=== PATIENT | male | born 1950 | race Caucasian/White ===

== ENCOUNTER 2017-02-02 06:57 | Emergency (ER) | payer OTHER ==
[2017-02-02 07:11] VITALS: BP 172/105; BMI 29.1
--- NOTE | 2017-02-02 07:25 | DR.GENAD ---
HPI - PCP Primary Care Physician: SIENNA AMARO - Complaint/Symptoms Chief Complaint Doctors Comments: Patient presents with complaint of RUQ pain/ feels a lump in abdomen. He states that he has polycythemia plts usually > 500K. With the recent episode of dyspnea he was evaluated by his human service coordinator and was assured that the heart was not the etiology of the dyspnea. Heart surgery one year ago; RUQ pain has been ongoing since. The past week had episode of diarrhea for three days. Chief Complaint:: SOB/PT C/O OF URQ DISCOMFORT. PT STATES HE THINKS HE FEELS A LUMP OF SOME TYPE IN UPPER ABD AREA - Source History Provided: Patient - Mode of Arrival Mode of Arrival: Ambulatory - Timing Onset of Chief Complaint: 02/02/17 <JOSEF HEIN - Last Filed: 02/02/17 08:16> PMH - PMH Past Medical History: Yes Past Medical History: Coronary Artery Disease, Hypertension Past Medical History Comment: POLYCYTHEMIA Past Surgical History: Yes Surgical History: CABG/Valve Surgery, Ortho Surgery - Family History History of Family Medical Conditions: Yes Family Medical History: Diabetes Mellitus, Coronary Artery Disease - Social History Type of Tobacco Use: None Does any household member use tobacco: No Alcohol Use: None Do you use any recreational Drugs:: No Lives With: Spouse Lives Where: Home - infectious screening In the last 2 months have you had wt loss of >10#?: NO Have you had fever, night sweats or hemotysis?: No Have you traveled outside the country in the last 6 months?: No Isolation: Standard <JOSEF HEIN - Last Filed: 02/02/17 08:16> ROS - Review of Systems Eyes: No Symptoms Reported ENTM: No Symptoms Reported Respiratoy: No Symptoms Reported Cardiovascular: No Symptoms Reported Gastrointestinal/Abdominal: No Symptoms Reported Genitourinary: No Symptoms Reported Neurological: No Symptoms Reported Musculoskeletal: No Symptoms Reported Integumentary: No Symptoms Reported Hematologic/Lymphatic: See HPI, Other (polycythemai) Endocrine: No Symptoms Reported Psychiatric: No Symptoms Reported All Other Systems: Reviewed and Negative <JOSEF HEIN - Last Filed: 02/02/17 08:16> PE - General General Appearance: Alert, In No Apparent Distress - Head Head Exam: Normal Inspection, Atraumatic - Eyes Eye exam: Normal Appearance, PERRL, EOMI - ENT ENT Exam: Normal Exam External Ear Exam: Normal External Inspection TM/Canal Exam: Bilateral Normal Nose Exam: Normal Nose Exam, Sinus Tenderness Mouth Exam: Normal Inspection Throat Exam: Normal Inspection - Neck Neck Exam: Normal Inspection, Full ROM - Chest Chest Inspection: Normal Inspection, Tenderness (generalized) - Respiratory Respiratory Exam: Normal Lung Sounds Bilat Respiratory Exam: Bilateral Clear to Auscultation - Cardiovascular Cardiovascular Exam: Regular Rate, Normal Rhythm - Abdominal Exam Abdominal Exam: Distention, Dimnished Bowel Sounds Abdominal Tenderness: RUQ, Epigastrium - Extremities Extremities Exam: Normal Inspection, Full ROM - Neurologic Neurological Exam: Alert, Oriented X3, CN II-XII Intact - Psychiatric Psychiatric Exam: Normal Affect - Skin Skin Exam: Warm, Dry, Other (areas of ecchymosis) <JOSEF HEIN - Last Filed: 02/02/17 08:16> - Vital Signs Vitals: Temperature 97.6 F Pulse Rate 83 Respiratory Rate 22 Blood Pressure 172/105 O2 Sat by Pulse Oximetry 96 ROR - Labs Reviewed Result Diagrams: 02/02/17 07:40 02/02/17 07:40 <JOSEF HEIN - Last Filed: 02/02/17 08:16> - Labs Reviewed Laboratory Results Reviewed?: Yes Result Diagrams: 02/02/17 07:40 02/02/17 07:40 - XRAY XRAY Interpreted by: Radiologist XRAY Findings: REPORT DISCUSS WITH PATIENT. <JEREMY RODRIGUEZ - Last Filed: 02/02/17 09:00> - Labs Reviewed Laboratory: WBC 11.6 X10^3/uL (3.6-10.0) H 02/02/17 07:40 RBC 4.92 X10^6/uL (4.7-6.0) 02/02/17 07:40 Hgb 16.8 g/dL (13.5-18.0) 02/02/17 07:40 Hct 49.0 % (42.0-54.0) 02/02/17 07:40 MCV 99.7 fL (80.0-100.0) 02/02/17 07:40 MCH 34.2 pg (27.0-34.0) H 02/02/17 07:40 MCHC 34.3 g/dL (33.0-35.0) 02/02/17 07:40 RDW 14.8 % (11.6-16.5) 02/02/17 07:40 Plt Count 638 X10^3/uL (150.0-450.0) H 02/02/17 07:40 Plt Count Comment Increased (ADEQUATE) 02/02/17 07:40 MPV 7.4 fL (7.4-11.0) 02/02/17 07:40 Neut % 81.1 % (42.0-75.0) H 02/02/17 07:40 Lymph % 11.7 % (21.0-51.0) L 02/02/17 07:40 [place] % 6.2 % (0.0-13.0) 02/02/17 07:40 Eos % 0.6 % (0.9-2.9) L 02/02/17 07:40 Baso % 0.4 % (0.2-1.0) 02/02/17 07:40 Neut # 9.4 x10^3/uL (2.2-4.8) H 02/02/17 07:40 Lymph # 1.4 X10^3/uL (1.3-2.9) 02/02/17 07:40 [place] # 0.7 x10^3/uL (0.3-0.8) 02/02/17 07:40 Eos # 0.1 x10^3/uL (0.0-0.2) 02/02/17 07:40 Baso # 0.0 X10^3/uL (0.0-0.1) 02/02/17 07:40 Absolute Nucleated RBC 0.1 /100WBC 02/02/17 07:40 Plt Morphology Comment Normal (NORMAL) 02/02/17 07:40 RBC Morphology Normal (NORMAL) 02/02/17 07:40 Sodium 141 mmol/L (136-145) 02/02/17 07:40 Corrected Sodium 142 mmol/L (136-145) 02/02/17 07:40 Potassium 3.3 mmol/L (3.5-5.1) L 02/02/17 07:40 Chloride 104 mmol/L (98-107) 02/02/17 07:40 Carbon Dioxide 24.4 mmol/L (21-32) 02/02/17 07:40 BUN 11 mg/dL (7-18) 02/02/17 07:40 Creatinine 0.94 mg/dL (0.70-1.30) 02/02/17 07:40 Est GFR (MDRD) Af Amer > 60 (>60) 02/02/17 07:40 Est GFR (MDRD) Non-Af > 60 (>60) 02/02/17 07:40 Glucose 121 mg/dL (65-99) H 02/02/17 07:40 Calcium 9.2 mg/dL (8.5-10.1) 02/02/17 07:40 Corrected Calcium TNP 02/02/17 07:40 Total Bilirubin 1.00 mg/dL (0.2-1.0) 02/02/17 07:40 AST 24 Units/L (15-37) 02/02/17 07:40 ALT 36 Units/L (12-78) 02/02/17 07:40 Alkaline Phosphatase 69 Units/L (46-116) 02/02/17 07:40 C-Reactive Protein 2.40 mg/L (0-3.0) 02/02/17 07:40 Total Protein 7.5 g/dL (6.4-8.2) 02/02/17 07:40 Albumin 4.3 g/dL (3.4-5.0) 02/02/17 07:40 Globulin 3.2 g/dL (2.5-4.5) 02/02/17 07:40 Albumin/Globulin Ratio 1.3 Ratio (1.1-2.1) 02/02/17 07:40 H. pylori IgG Antibody Negative (NEGATIVE) 02/02/17 07:40 <JOSEF HEIN - Last Filed: 02/02/17 08:16> <JEREMY RODRIGUEZ - Last Filed: 02/02/17 09:00> - Diagnosis Discharge Problem: Shortness of breath Abdominal pain Qualifiers: Abdominal location: right upper quadrant Qualified Code(s): R10.11 - Right upper quadrant pain - Discharge Plan Condition: Stable - Follow ups/Referrals Follow ups/Referrals: SIENNA AMARO [Primary Care Provider] - 3 days - Instructions Instructions: Abdominal Pain, Adult, [id number] Additional Instructions: RETURN TO ED IF WORSE.
[2017-02-02 07:59] LABS: BASOPHILS % (AUTO) 0.4 % (0.2-1.0); EOSINOPHILS # (AUTO) 0.1 x10^3/uL (0.0-0.2); EOSINOPHILS % (AUTO) 0.6 % (0.9-2.9); HEMOGLOBIN 16.8 g/dL (13.5-18.0); LYMPHOCYTES # (AUTO) 1.4 X10^3/uL (1.3-2.9); LYMPHOCYTES % (AUTO) 11.7 % (21.0-51.0); MEAN CORPUSCULAR HEMOGLOBIN 34.2 pg (27.0-34.0); MEAN CORPUSCULAR HGB CONC 34.3 g/dL (33.0-35.0); MEAN CORPUSCULAR VOLUME 99.7 fL (80.0-100.0); MEAN PLATELET VOLUME 7.4 fL (7.4-11.0); MONOCYTES # (AUTO) 0.7 x10^3/uL (0.3-0.8); MONOCYTES % (AUTO) 6.2 % (0.0-13.0); NEUTROPHILS # (AUTO) 9.4 x10^3/uL (2.2-4.8); NEUTROPHILS % (AUTO) 81.1 % (42.0-75.0); PLATELET COUNT 638 X10^3/uL (150.0-450.0); RED BLOOD COUNT 4.92 X10^6/uL (4.7-6.0); RED CELL DISTRIBUTION WIDTH 14.8 % (11.6-16.5); WHITE BLOOD COUNT 11.6 X10^3/uL (3.6-10.0)
--- NOTE | 2017-02-02 08:03 | CT ---
HISTORY: Right upper quadrant pain Study: CT abdomen pelvis without contrast Comparison: None Technique: Axial noncontrast images with coronal and sagittal reformats. Dose reduction procedures we re used with mA/kv adjusted for body size. The examination is limited due to the lack of intravenous and oral contrast. Findings: The lung bases are clear. The liver, spleen, adrenal glands, and pancreas are within normal limits to the limitations of an unenhanced examination. No opaque stones are visible within the gallbladder. T he kidneys are unobstructed. There are 2 tiny nonobstructing right lower pole renal calculi present. There is a nonobstructing 8.6 mm left renal pelvic calculus present. No ureteral calculi are identifi ed. The appendix is normal. Calcific atherosclerotic change is present in a nondilated abdominal aort a. No intraperitoneal or retroperitoneal lymphadenopathy is identified. There are no findings suggest courtney of diverticulitis or colitis. The appendix is normal. Examination of the pelvis demonstrated no e vidence for pelvic masses, pelvic fluid, or pelvic lymphadenopathy. No bladder abnormality is identif ied. The prostate is enlarged measuring 5.1 by 3.9 by 3.3 cm. No lytic or blastic skeletal lesions ar e identified. IMPRESSION: No acute intra-abdominal or intrapelvic abnormality to the limitations of an examination performed wi thout intravenous or oral contrast Bilateral nonobstructing renal calculi Moderately enlarged prostate Reported By:
[2017-02-02 08:08] LABS: ALANINE AMINOTRANSFERASE 36 Units/L (12-78); ALBUMIN 4.3 g/dL (3.4-5.0); ALKALINE PHOSPHATASE 69 Units/L (46-116); ASPARTATE AMINO TRANSFERASE 24 Units/L (15-37); BLOOD UREA NITROGEN 11 mg/dL (7-18); CALCIUM 9.2 mg/dL (8.5-10.1); CARBON DIOXIDE 24.4 mmol/L (21-32); CHLORIDE 104 mmol/L (98-107); COR NA(FOR HYPERGLY) 142 mmol/L (136-145); CREATININE 0.94 mg/dL (0.70-1.30); PLATELET MORPHOLOGY COMMENT NORMAL (NORMAL); SODIUM 141 mmol/L (136-145); TOTAL PROTEIN 7.5 g/dL (6.4-8.2); eGFR BLACK RACES > 60 (>60); eGFR NON BLACK RACES > 60 (>60)
[2017-02-02] MEDS ORDERED: POTASSIUM CHLORIDE LIQ 20 MEQ UDC PO ONE (08:26)
[2017-02-02] MEDS ORDERED: POTASSIUM CHLORIDE LIQ 20 MEQ UDC ONE (08:34)
== END 2017-02-02 08:55 | disposition home or self-care (01) ==
LOC: ER 06:57
DX: R06.02 Shortness of breath (principal); R10.11 Right upper quadrant pain; N20.0 Calculus of kidney
CPT/HCPCS: 36415; 74176; 80053; 85025; 86140; 86677; 99283

== ENCOUNTER 2017-08-06 12:35 | Inpatient (IN) | payer OTHER ==
[2017-08-06] MEDS ORDERED: MORPHINE SULFATE INJ 2 MG INJ IVP PRN (13:10)
--- NOTE | 2017-08-06 13:19 | DR.H&P ---
H&P - History & Physical for Day of: H&P Date: 08/06/17 - Chief Complaint Chief Complaint: ABSCESS TO LEFT UNDERARM, WITH REDNESS SWELLING AND SEVERE PAIN - Allergies Allergies/Adverse Reactions: Allergies Allergy/AdvReac Type Severity Reaction Status Date / Time No Known Drug Allergies Allergy Verified 02/02/17 07:19 - History of Present Illness History of Present Illness: 66 WM DIRECT ADMIT FROM DR CHEN OFFICE WITH LEFT AXILLARY ABSCESS WITH CELLULITIS. PT HAD I&D OF 2 AXILLARY ABCESSES, OVER THE LAST 2 WEEKS. PT HAD ONE IN ER IN [place] AND SMALLER IN OFFICE WITH CULTURE POSITIVE FOR MRSA. PT HAS BEEN ON PO BACTRIM FOR 2 WEEKS. PT HAD INCREASE REDNESS TO LEFT UPPER ARM WITH ENLARGED LYMPH NODES. PT HAS PMH OF CAD , HTN, HYPERLIPIDEMIA, POLYCYTHEMIA. PT ADMITTED FOR IV ATBX, AND SURGICAL CONSULT - Past Medical History Past Medical History: Arthritis, Coronary Artery Disease, Dyslipidemia, Hypertension - Past Surgical History Surgical History: CABG/Valve Surgery, Ortho Surgery - Family History Family Medical History: Diabetes Mellitus, Coronary Artery Disease - Social History Does patient currently use any type of tobacco product: No Have you used tobacco products in the last 12 months: No Type of Tobacco Use: None Does any household member use tobacco: No Alcohol Use: None Drug Use: None - Review of Systems Constitutional: Chills, Malaise Eyes: No Symptoms Reported ENT: No Symptoms Reported Respiratory: No Symptoms Reported Cardiovascular: No Symptoms Reported Gastrointestinal: No Symptoms Reported Genitourinary: No Symptoms Reported Musculoskeletal: Arm Pain, Back Pain, Leg Pain Skin: Wound Neurological: No Symptoms Reported - Physical Exam Vital Signs: Blood Pressure 172/105 Oriented: Normal Eyes: Normal Ear: Normal Nose: Normal Throat: Normal Respiratory: RLL Diminished, LLL Diminished Cardiovascular: Normal. negative: Edema : Normal Auscultation: Bowel Sounds: Normal Palpation: Normal Tenderness: Normal Skin: Red, Tender, Hot, Wound (LEFT AXILLARY) Musculoskeletal: Right, Left, Hip, Back:Thoracic, Back:Lumbar, Swelling, Tender Mood Description: Anxious Affect: Anxious Speech Pattern: Clear, Appropriate - Assessment/Plan (1) Cellulitis Status: Acute Plan: ADMIT, BLOOD CULTURES. IV ATBX, ADMISSION LABS. SURGICAL CONSULT, US LEFT AXILLARY. PAIN CONTROL (2) Abscess of left axilla Status: Acute (3) Left axillary swelling Status: Acute (4) Left axillary pain Status: Acute (5) CAD (coronary artery disease) Status: Acute
[2017-08-06] MEDS ORDERED: PHARMACY CONSULT - VANCOMYCIN XX SCH (14:00)
[2017-08-06 14:02] LABS: BASOPHILS % (AUTO) 0.2 % (0.2-1.0); EOSINOPHILS # (AUTO) 0.1 x10^3/uL (0.0-0.2); EOSINOPHILS % (AUTO) 0.7 % (0.9-2.9); HEMATOCRIT 37.5 % (42.0-54.0); HEMOGLOBIN 12.9 g/dL (13.5-18.0); LYMPHOCYTES % (AUTO) 13.9 % (21.0-51.0); MEAN CORPUSCULAR HEMOGLOBIN 34.5 pg (27.0-34.0); MEAN CORPUSCULAR HGB CONC 34.5 g/dL (33.0-35.0); MEAN CORPUSCULAR VOLUME 100.2 fL (80.0-100.0); MEAN PLATELET VOLUME 6.9 fL (7.4-11.0); MONOCYTES # (AUTO) 0.6 x10^3/uL (0.3-0.8); MONOCYTES % (AUTO) 8.2 % (0.0-13.0); NEUTROPHILS # (AUTO) 5.8 x10^3/uL (2.2-4.8); PLATELET COUNT 454 X10^3/uL (150.0-450.0); RED BLOOD COUNT 3.74 X10^6/uL (4.7-6.0); RED CELL DISTRIBUTION WIDTH 26.7 % (11.6-16.5); WHITE BLOOD COUNT 7.5 X10^3/uL (3.6-10.0)
[2017-08-06 14:09] LABS: ALANINE AMINOTRANSFERASE 21 Units/L (12-78); ALKALINE PHOSPHATASE 77 Units/L (46-116); ASPARTATE AMINO TRANSFERASE 18 Units/L (15-37); BLOOD UREA NITROGEN 19 mg/dL (7-18); CALCIUM 8.6 mg/dL (8.5-10.1); CHLORIDE 105 mmol/L (98-107); COR NA(FOR HYPERGLY) 142 mmol/L (136-145); SODIUM 141 mmol/L (136-145); TOTAL PROTEIN 7.4 g/dL (6.4-8.2); eGFR BLACK RACES > 60 (>60); eGFR NON BLACK RACES > 60 (>60)
[2017-08-06 14:31] LABS: PLATELET MORPHOLOGY COMMENT NORMAL (NORMAL)
[2017-08-06 14:33] LABS: ANISOCYTOSIS 3+
[2017-08-06] MEDS ORDERED: NS 1000 ML 1,000 ML ONE (14:34)
[2017-08-06] MEDS ORDERED: VANCOMYCIN 1 GM PREMIX (ADDVANTAGE) 250 ML IV ONE ×2 (14:35→14:37)
[2017-08-06 14:42] LABS: ERYTHROCYTE SEDIMENTATION RATE 29 MM/HOUR (0-15)
[2017-08-06] MEDS: VANCOMYCIN 1 GM PREMIX (ADDVANTAGE) 250 ML IV SCH ×2 (14:56→21:30)
[2017-08-06] MEDS: PERCOCET TAB 5/325 MG PO PRN (14:59)
[2017-08-06] MEDS: PROTONIX INJ 40 MG VIAL IVP SCH (15:00)
[2017-08-06 16:35] VITALS: BMI 25.8
--- NOTE | 2017-08-06 16:48 | US ---
HISTORY: Left axillary abscess Study: Axillary ultrasound Comparison: None Findings: Scans of the left axilla were performed. There are 2 complex fluid collection seen measuring 1.8 x 1. 1 x 2.1 cm and 1 x 1 x 1.7 cm. The findings are concerning for possible abscesses. There is surroundi ng soft tissue edema noted. IMPRESSION: 1. There are 2 complex fluid collections in the left axilla as described that may represent abscesses in the appropriate clinical setting. Reported By:
[2017-08-06] MEDS ORDERED: XYLOCAINE 1 % (PLAIN) ONE (20:46)
[2017-08-06] MEDS ORDERED: DILAUDID INJ ONE (20:47)
[2017-08-06] MEDS ORDERED: DILAUDID INJ IVP PRN (21:00)
--- NOTE | 2017-08-06 21:26 | OR.GENERIC ---
Post-Op Note Generic - Post-Op Note Operative Report: I & D of Lt axillary abscess was done at bedside with large amount of purulent material evacuated . will contiue local care and IV Vanco.
[2017-08-07 05:13] VITALS: BP 160/75
[2017-08-07 06:56] LABS: BASOPHILS % (AUTO) 0.4 % (0.2-1.0); EOSINOPHILS # (AUTO) 0.1 x10^3/uL (0.0-0.2); EOSINOPHILS % (AUTO) 1.2 % (0.9-2.9); HEMATOCRIT 33.2 % (42.0-54.0); HEMOGLOBIN 11.5 g/dL (13.5-18.0); LYMPHOCYTES # (AUTO) 1.1 X10^3/uL (1.3-2.9); MEAN CORPUSCULAR HEMOGLOBIN 34.6 pg (27.0-34.0); MEAN CORPUSCULAR HGB CONC 34.7 g/dL (33.0-35.0); MEAN CORPUSCULAR VOLUME 99.9 fL (80.0-100.0); MEAN PLATELET VOLUME 7.2 fL (7.4-11.0); MONOCYTES # (AUTO) 0.4 x10^3/uL (0.3-0.8); MONOCYTES % (AUTO) 8.7 % (0.0-13.0); NEUTROPHILS # (AUTO) 3.4 x10^3/uL (2.2-4.8); NEUTROPHILS % (AUTO) 67.7 % (42.0-75.0); PLATELET COUNT 353 X10^3/uL (150.0-450.0); RED BLOOD COUNT 3.33 X10^6/uL (4.7-6.0); RED CELL DISTRIBUTION WIDTH 26.3 % (11.6-16.5); WHITE BLOOD COUNT 5.1 X10^3/uL (3.6-10.0)
[2017-08-07 07:18] LABS: ANISOCYTOSIS 2+; PLATELET MORPHOLOGY COMMENT NORMAL (NORMAL)
[2017-08-07 07:22] LABS: ALANINE AMINOTRANSFERASE 23 Units/L (12-78); ALBUMIN 3.2 g/dL (3.4-5.0); ALKALINE PHOSPHATASE 64 Units/L (46-116); ASPARTATE AMINO TRANSFERASE 15 Units/L (15-37); BLOOD UREA NITROGEN 16 mg/dL (7-18); CALCIUM 8.1 mg/dL (8.5-10.1); CARBON DIOXIDE 24.4 mmol/L (21-32); CHLORIDE 108 mmol/L (98-107); COR CA(FOR HYPOALB) 8.7 mg/dL (8.5-10.1); SODIUM 141 mmol/L (136-145); TOTAL PROTEIN 6.1 g/dL (6.4-8.2); eGFR BLACK RACES > 60 (>60); eGFR NON BLACK RACES > 60 (>60)
[2017-08-07] MEDS: VANCOMYCIN 1 GM PREMIX (ADDVANTAGE) 250 ML IV SCH (08:36)
[2017-08-07] MEDS: PROTONIX INJ 40 MG VIAL IVP SCH (08:36)
[2017-08-07] MEDS: PERCOCET TAB 5/325 MG PO PRN (08:36)
== END 2017-08-07 12:25 | disposition home or self-care (01) | DRG 603 ==
LOC: UNDOADMIN 12:35 → ICU 12:35
PROVIDERS: ADMIT Internal Medicine; ATTEND Internal Medicine
PROC: 0X950ZX Drainage of Left Axilla, Open Approach, Diagnostic (ICD-10-PCS; principal; 2017-08-06)
DX: L03.112 Cellulitis of left axilla (principal); L02.412 Cutaneous abscess of left axilla; R22.2 Localized swelling, mass and lump, trunk; I25.10 Atherosclerotic heart disease of native coronary artery without angina pectoris; I10 Essential (primary) hypertension; E78.2 Mixed hyperlipidemia; B95.62 Methicillin resistant Staphylococcus aureus infection as the cause of diseases classified elsewhere; D45 Polycythemia vera; R79.82 Elevated C-reactive protein (CRP)
CPT/HCPCS: 36415; 76882; 80053; 85025; 85652; 86140; 87040; A4222; C9113; J1170; J2001; J2270; J3370

== ENCOUNTER 2019-02-23 07:35 | Observation (INO) ==
[2019-02-23] MEDS: DEMEROL INJ IVP PRN ×2 (10:06→17:10)
[2019-02-23 10:18] LABS: BASOPHILS # (AUTO) 0.1 X10^3/uL (0.0-0.1); BASOPHILS % (AUTO) 0.7 % (0.2-1.0); EOSINOPHILS # (AUTO) 0.3 x10^3/uL (0.0-0.2); HEMATOCRIT 34.7 % (42.0-54.0); HEMOGLOBIN 11.6 g/dL (13.5-18.0); LYMPHOCYTES # (AUTO) 1.3 X10^3/uL (1.3-2.9); LYMPHOCYTES % (AUTO) 15.2 % (21.0-51.0); MEAN CORPUSCULAR HGB CONC 33.5 g/dL (33.0-35.0); MEAN CORPUSCULAR VOLUME 86.7 fL (80.0-100.0); MEAN PLATELET VOLUME 7.6 fL (7.4-11.0); MONOCYTES # (AUTO) 0.6 x10^3/uL (0.3-0.8); MONOCYTES % (AUTO) 6.7 % (0.0-13.0); NEUTROPHILS # (AUTO) 6.4 x10^3/uL (2.2-4.8); NEUTROPHILS % (AUTO) 74.4 % (42.0-75.0); PLATELET COUNT 593 X10^3/uL (150.0-450.0); RED BLOOD COUNT 4.01 X10^6/uL (4.7-6.0); RED CELL DISTRIBUTION WIDTH 15.1 % (11.6-16.5); WHITE BLOOD COUNT 8.6 X10^3/uL (3.6-10.0)
[2019-02-23 10:30] LABS: ALANINE AMINOTRANSFERASE 39 Units/L (12-78); ALBUMIN 3.6 g/dL (3.4-5.0); ALKALINE PHOSPHATASE 55 Units/L (46-116); AMYLASE 39 Units/L (25-115); ASPARTATE AMINO TRANSFERASE 18 Units/L (15-37); BLOOD UREA NITROGEN 15 mg/dL (7-18); CALCIUM 8.3 mg/dL (8.5-10.1); CHLORIDE 108 mmol/L (98-107); CREATININE 0.98 mg/dL (0.70-1.30); LIPASE 40 Units/L (73-393); SODIUM 143 mmol/L (136-145); TOTAL PROTEIN 6.2 g/dL (6.4-8.2); eGFR NON BLACK RACES > 60 (>60)
[2019-02-23 10:35] VITALS: BMI 28.1
[2019-02-23 12:47] LABS: BILIRUBIN,URINE NEGATIVE (NEGATIVE); BLOOD/HEMOGLOBIN,URINE NEGATIVE (NEGATIVE); GLUCOSE, URINE NEGATIVE (NEGATIVE); KETONES,URINE NEGATIVE (NEGATIVE); LEUKOCYTE ESTERASE ,URINE NEGATIVE (NEGATIVE); NITRITES,URINE NEGATIVE (NEGATIVE); PROTEIN,URINE 1+ (NEGATIVE); UROBILINOGEN,URINE NORMAL (NORMAL)
[2019-02-23] MEDS ORDERED: LOVENOX INJ 40 MG SYR SC SCH (13:00)
[2019-02-23 13:01] LABS: APPEARANCE,URINE CLEAR (CLEAR); BACTERIA,URINE NEGATIVE /HPF (NEGATIVE); COLOR,URINE YELLOW (YELLOW); RBC,URINE NONE SEEN /HPF (0-3); SQUAMOUS EPITHELIAL CELL,UR RARE /HPF (NEGATIVE)
[2019-02-23] MEDS ORDERED: NS 100 ML IV 100 ML IV ONE (13:48)
[2019-02-23] MEDS: NS 1000 ML 1,000 ML IV SCH ×3 (15:32→23:44)
--- NOTE | 2019-02-23 16:06 | US ---
HISTORY: Right upper quadrant pain. Study: Right upper quadrant abdominal ultrasound Comparison: None. Technique: Multiple gabriel scale and color flow Doppler images of the right upper quadrant were obtained. Findings: The liver is normal in echotexture and size. No focal intraparenchymal mass or intrahepatic biliary ductal dilatation can be observed. There is a sludge ball versus nonshadowing gallstone seen in the gallbladder without sonographic evidence for acute cholecystitis. Nuclear medicine HIDA imaging follow-up is suggested, however, as Kuo's sign is reportedly sonographically positive. The common bile duct is unremarkable measuring 2 mm. No pericholecystic fluid or gallbladder wall thickening can be observed. The CBD measures within normal limits. The right kidney appears normal in size without focal parenchymal mass or nephrolithiasis. The right kidney measurers 9 x 5 cm. Mild right-sided renal cortical thinning is seen in the right kidney is somewhat echogenic in appearance. Please correlate with renal function tests and parameters. No hydronephrosis or perirenal fluid can be observed. The pancreatic head and body are unremarkable. The pancreatic tail is largely obscured by overlying bowel gas. IMPRESSION: Sludge ball versus nonshadowing gallstone seen within the gallbladder without definitive sonographic evidence for acute cholecystitis. Nuclear medicine HIDA imaging follow-up is suggested, however, as Kuo's sign is reportedly sonographically positive. The common bile duct is normal in size measuring 2 mm. Unremarkable liver. The right kidney appears normal in size without focal parenchymal mass or nephrolithiasis. The right kidney measurers 9 x 5 cm. Mild right-sided renal cortical thinning is seen, and the right kidney is somewhat echogenic in appearance, suggesting chronic medical renal disease. Please correlate with renal function tests & parameters. Reported By:
--- NOTE | 2019-02-23 17:31 | CT ---
History: Pain Exam: CT abdomen and pelvis with contrast Comparison: 02/02/2017 Technique: Axial spiral images were obtained from lung bases through the pubic symphysis after administration of IV and oral contrast. Automated dose control was utilized. Findings: There are small bibasilar pleural effusions and associated bibasilar atelectasis or infiltrates posteriorly which is more prominent on the left . The liver and spleen are normal size with fatty replacement throughout the liver. The gallbladder, pancreas , and bile ducts are normal. The adrenals are normal. The kidneys are normal size and function normally with no hydronephrosis or renal stones . There is a prominent extrarenal pelvis on the left which is unchanged . No masses are seen. There is a 5 x 3 mm stone lodged in the proximal right ureter , at the level of the lower pole , which was not seen previously and is not causing any significant obstruction. The distal ureters are normal caliber. The bladder is unremarkable. The prostate gland is mildly enlarged and partially calcified. There are diverticula scattered along the sigmoid colon. The appendix is normal. No adenopathy or ascites is seen . The mesentery is unremarkable . The bones are intact with no aggressive osseous lesion . IMPRESSION: 5 x 3 mm stone lodged in the proximal right ureter which is not causing any significant urinary obstruction, recommend urological follow-up . Small bibasilar pleural effusions and associated bibasilar atelectasis or infiltrates which is more prominent on the left. Normal size liver with diffuse fatty replacement throughout . Mild diverticulosis of the sigmoid colon with no pericolonic inflammation. Mild prostatic enlargement with no pelvic mass or adenopathy. Reported By:
[2019-02-23] MEDS: DILAUDID INJ IVP PRN (22:26)
--- NOTE | 2019-02-23 22:36 | DR.H&P ---
H&P - History & Physical for Day of: H&P Date: 02/23/19 - Chief Complaint Chief Complaint: ABDOMINAL PAIN - History of Present Illness History of Present Illness: IS A 68 YEAR OLD PATIENT OF OURS WHO IS A DIRECT ADMISSION DUE TO INTRACTABLE ABDOMINAL PAIN THAT STARTED APPROXIMATELY THREE DAYS AGO. PAIN IS MAINLY LOCATED IN THE RIGHT UPPER QUADRANT. HE ALSO REPORTS SHORTNESS OF BREATH AT TIMES. ON ARRIVAL, VITALS WERE 98.2-60-18-99%- 177/84. LABS WERE OBTAINED. ABNORMAL LAB VALUES INCLUDE THE FOLLOWING: RBC 4.01, HGB 11.1, HCT 34.7, PLT COUNT 593, CHLORIDE 108, CALCIUM 8.3, TOTAL PROTEIN 6.2, LIPASE 40. AN ABDOMEN/PELVIS CT WAS OBTAINED AND REVEALED: 5 x 3 mm stone lodged in the proximal right ureter which is not causing any significant urinary obstruction, recommend urological follow-up. Small bibasilar pleural effusions and associated bibasilar atelectasis or infiltrates which is more prominent on the left. Normal size liver with diffuse fatty replacement throughout. Mild diverticulosis of the sigmoid colon with no pericolonic inflammation. Mild prostatic enlargement with no pelvic mass or adenopathy. A GALLBLADDER US WAS OBTAINED AND REVEALED: Sludge ball versus nonshadowing gallstone seen within the gallbladder without definitive sonographic evidence for acute cholecystitis. Nuclear medicine HIDA imaging follow-up is suggested, however, as Kuo's sign is reportedly sonographically positive. The common bile duct is normal in size measuring 2 mm. Unremarkable liver. The right kidney appears normal in size without focal parenchymal mass or nephrolithiasis. The right kidney measurers 9 x 5 cm. Mild right-sided renal cortical thinning is seen, and the right kidney is somewhat echogenic in appearance, suggesting chronic medical renal disease. Please correlate with renal function tests & parameters. AN EKG WAS OBTAINED AND REVEALED: SINUS RHYTHM WITH HR 59. WE WILL CONSULT , GENERAL SURGEON. WE WILL START NORMAL SALINE AT 125ML/HR, DILAUDID 1G IV Q4H PRN, ZOFRAN 4MG IV Q4H PRN. OTHERWISE, WE PLAN TO FOLLOW UP WITH AM LABS AND CONTINUE TO MONITOR. - Past Medical History Past Medical History: Arthritis, Coronary Artery Disease, Dyslipidemia, Hyperten brandy - Past Surgical History Surgical History: CABG/Valve Surgery, Ortho Surgery, Lithotripsy - Family History Family Medical History: Diabetes Mellitus, Cancer, Coronary Artery Disease - Social History Type of Tobacco Use: None Does any household member use tobacco: No Alcohol Use: None Drug Use: None - Medications Home Medications: No Known Drug Allergies Allergy (Verified 02/02/17 07:19) CONTINUE taking the following medications aspirin [Aspirin Low Dose] 81 mg PO DAILY 02/23/19 [History] carisoprodol [Soma] 350 mg PO TID PRN 02/23/19 [History] cholecalciferol (vitamin D3) [Vitamin D3] 5,000 unit PO BID 02/23/19 [History] coQ10 (ubiquinol) [Active Q] 200 mg PO DAILY 02/23/19 [History] gabapentin 300 mg PO QHS PRN 02/23/19 [History] hydroxychloroquine 200 mg PO BID 02/23/19 [History] hydroxyurea 500 mg PO DAILY 02/23/19 [History] meloxicam 7.5 mg PO BIDWM 02/23/19 [History] prednisone 5 mg PO QAM 02/23/19 [History] triamterene-hydrochlorothiazid [Dyazide] 1 cap PO QAM PRN 02/23/19 [History] - Review of Systems Constitutional: See HPI Eyes: No Symptoms Reported ENT: No Symptoms Reported Respiratory: No Symptoms Reported Cardiovascular: No Symptoms Reported Gastrointestinal: See HPI, Nausea, Abdominal Pain Genitourinary: No Symptoms Reported Musculoskeletal: No Symptoms Reported Skin: No Symptoms Reported Neurological: Weakness - Physical Exam Vital Signs: Temperature 98.5 F Pulse Rate [Left Brachial] 60 Respiratory Rate 18 Blood Pressure [Left Arm] 160/76 Blood Pressure 160/75 O2 Sat by Pulse Oximetry 97 Oriented: Normal Eyes: Normal Ear: Normal Nose: Normal Throat: Normal Respiratory: Diminished Throughout Cardiovascular: Normal. negative: S3, S4, Murmur : Normal Auscultation: Bowel Sounds: Normal Palpation: Normal Tenderness: RUQ Skin: Normal Musculoskeletal: Normal Psychiatric: Normal Mood Description: Calm Affect: Normal Speech Pattern: Clear - Assessment/Plan (1) Abdominal pain Qualifiers: Abdominal location: right upper quadrant Qualified Code(s): R10.11 - Right upper quadrant pain Status: Acute Plan: SURGICAL CONSULT, NORMAL SALINE AT 125ML/HR, DILAUDID 1G IV Q4H PRN, ZOFRAN 4MG IV Q4H PRN, CONTINUE TO MONITOR - Allergies Allergies/Adverse Reactions: Allergies Allergy/AdvReac Type Severity Reaction Status Date / Time No Known Drug Allergies Allergy Verified 02/02/17 07:19
[2019-02-24] MEDS: NS 1000 ML 1,000 ML IV SCH (04:30)
[2019-02-24] MEDS: DILAUDID INJ IVP PRN ×7 (05:29→14:59)
[2019-02-24] MEDS: ZOFRAN INJ 4 MG VIAL IVP PRN ×3 (05:37→15:00)
[2019-02-24 06:25] LABS: BASOPHILS # (AUTO) 0.1 X10^3/uL (0.0-0.1); BASOPHILS % (AUTO) 0.7 % (0.2-1.0); EOSINOPHILS # (AUTO) 0.2 x10^3/uL (0.0-0.2); EOSINOPHILS % (AUTO) 2.8 % (0.9-2.9); HEMATOCRIT 34.8 % (42.0-54.0); HEMOGLOBIN 11.8 g/dL (13.5-18.0); LYMPHOCYTES # (AUTO) 1.2 X10^3/uL (1.3-2.9); LYMPHOCYTES % (AUTO) 14.5 % (21.0-51.0); MEAN CORPUSCULAR HEMOGLOBIN 29.3 pg (27.0-34.0); MEAN CORPUSCULAR HGB CONC 33.9 g/dL (33.0-35.0); MEAN CORPUSCULAR VOLUME 86.4 fL (80.0-100.0); MEAN PLATELET VOLUME 7.9 fL (7.4-11.0); MONOCYTES # (AUTO) 0.5 x10^3/uL (0.3-0.8); NEUTROPHILS # (AUTO) 6.5 x10^3/uL (2.2-4.8); PLATELET COUNT 659 X10^3/uL (150.0-450.0); RED BLOOD COUNT 4.03 X10^6/uL (4.7-6.0); RED CELL DISTRIBUTION WIDTH 15.3 % (11.6-16.5); WHITE BLOOD COUNT 8.6 X10^3/uL (3.6-10.0)
[2019-02-24 06:35] LABS: ALANINE AMINOTRANSFERASE 36 Units/L (12-78); ALBUMIN 3.6 g/dL (3.4-5.0); ALKALINE PHOSPHATASE 55 Units/L (46-116); ASPARTATE AMINO TRANSFERASE 15 Units/L (15-37); BLOOD UREA NITROGEN 13 mg/dL (7-18); CALCIUM 8.4 mg/dL (8.5-10.1); CARBON DIOXIDE 25.3 mmol/L (21-32); CHLORIDE 107 mmol/L (98-107); CREATININE 0.92 mg/dL (0.70-1.30); SODIUM 141 mmol/L (136-145); TOTAL PROTEIN 6.2 g/dL (6.4-8.2); eGFR NON BLACK RACES > 60 (>60)
[2019-02-24 07:01] LABS: PLATELET MORPHOLOGY COMMENT NORMAL (NORMAL)
[2019-02-24] MEDS ORDERED: BACTROBAN TOPICAL OINT ONE (09:46)
[2019-02-24] MEDS ORDERED: LR 1000 ML IV 1,000 ML IV ONE ×2 (10:13→10:28)
[2019-02-24] MEDS ORDERED: NS 100 ML IV 100 ML IV ONE (10:13)
[2019-02-24] MEDS ORDERED: ANCEF VIAL 1 GRAM ONE (10:14)
[2019-02-24] MEDS ORDERED: FENTANYL INJ 100 mcg ONE (10:28)
[2019-02-24] MEDS ORDERED: DECADRON INJ ONE ×2 (10:29→14:25)
[2019-02-24] MEDS ORDERED: MORPHINE SULFATE INJ 10 MG ONE (10:29)
[2019-02-24] MEDS ORDERED: AMIDATE INJ 40 MG VIAL ONE ×2 (10:29→14:25)
[2019-02-24] MEDS ORDERED: ZEMURON ONE ×2 (10:30→14:25)
[2019-02-24] MEDS ORDERED: ZOFRAN INJ 4 MG VIAL IVP PRN (12:21)
[2019-02-24] MEDS ORDERED: PHENERGAN INJ 25 MG IM PRN (12:21)
[2019-02-24] MEDS ORDERED: BENADRYL INJ 50 MG VIAL IVP PRN (12:21)
[2019-02-24] MEDS ORDERED: REGLAN INJ 10 MG VIAL IVP PRN (12:21)
[2019-02-24] MEDS ORDERED: DILAUDID INJ ONE ×2 (12:34→12:49)
[2019-02-24] MEDS ORDERED: APRESOLINE INJ 20 MG VIAL ONE (12:49)
[2019-02-24] MEDS ORDERED: XYLOCAINE 1 % (PLAIN) ONE (14:25)
[2019-02-24] MEDS ORDERED: QUELICIN (OR ANECTINE) ONE (14:25)
[2019-02-24] MEDS ORDERED: VERSED ONE (14:25)
[2019-02-24] MEDS ORDERED: ZOFRAN INJ 4 MG VIAL ONE (14:25)
[2019-02-24] MEDS ORDERED: ULTANE GAS IN ONE (14:25)
[2019-02-24] MEDS ORDERED: NEOSTIGMINE INJ ONE (14:25)
[2019-02-24] MEDS ORDERED: TORADOL 30 MG VIAL ONE (14:25)
[2019-02-24] MEDS ORDERED: ROBINUL ONE (14:25)
[2019-02-24 17:21] VITALS: BP 168/79
[2019-02-24] MEDS ORDERED: TRIAMTERENE HYDROCHLOROTHIAZID PO PRN (18:25)
[2019-02-24] MEDS ORDERED: SOMA TAB 350 MG PO PRN (18:25)
[2019-02-24] MEDS ORDERED: PATIENT'S HOME MEDICATION (Cholecalciferol (Vitamin D3) [Vitamin D3] 5,000 UNIT) PO SCH (21:00)
[2019-02-24] MEDS ORDERED: PLAQUENIL PO SCH (21:00)
[2019-02-24] MEDS ORDERED: NEURONTIN CAP 300 MG PO PRN (21:00)
[2019-02-25] MEDS ORDERED: HYDREA PO SCH (09:00)
[2019-02-25] MEDS ORDERED: COQ10 200 MG PO SCH (09:00)
[2019-02-25] MEDS ORDERED: PREDNISONE TAB 5 MG PO SCH (09:00)
== END 2019-02-24 18:25 | disposition home or self-care (01) ==
LOC: MED/SURG
PROVIDERS: ADMIT Internal Medicine; ATTEND Internal Medicine
DX: R94.31 Abnormal electrocardiogram [ECG] [EKG]; K82.8 Other specified diseases of gallbladder; J90 Pleural effusion, not elsewhere classified; K57.30 Diverticulosis of large intestine without perforation or abscess without bleeding; N20.1 Calculus of ureter; R06.02 Shortness of breath; N40.0 Benign prostatic hyperplasia without lower urinary tract symptoms; I25.10 Atherosclerotic heart disease of native coronary artery without angina pectoris; R10.9 Unspecified abdominal pain; K81.1 Chronic cholecystitis; I10 Essential (primary) hypertension; L03.90 Cellulitis, unspecified; R10.84 Generalized abdominal pain; E78.2 Mixed hyperlipidemia
CPT/HCPCS: 36415; 74177; 76705; 80053; 81001; 82150; 83690; 85025; 85610; 85730; 88304; 93005; 96360; 96361; 96372; 96374; A4216; A4222; G0378; J0330; J0360; J0690; J1100; J1170; J1650; J1885; J2175; J2250; J2270; J2405; J2710; J3010; J3490; J7030; J7050; J7120

== ENCOUNTER 2021-11-20 19:29 | Observation (INO) ==
[2021-11-20] MEDS ORDERED: SNACK - Diabetic Appropriate PO SCH (21:34)
[2021-11-20] MEDS ORDERED: NovoLIN R (or HumuLIN R) SUBCUT PRN (21:34)
[2021-11-20] MEDS ORDERED: MORPHINE SULFATE INJ 2 MG INJ IVP PRN (21:34)
[2021-11-20 22:15] LABS: BASOPHILS # (AUTO) 0.1 X10^3/uL (0.0-0.1); BASOPHILS % (AUTO) 0.7 % (0.2-1.0); EOSINOPHILS % (AUTO) 0.5 % (0.9-2.9); HEMATOCRIT 42.3 % (42.0-54.0); HEMOGLOBIN 14.7 g/dL (13.5-18.0); LYMPHOCYTES # (AUTO) 0.8 X10^3/uL (1.3-2.9); LYMPHOCYTES % (AUTO) 10.2 % (21.0-51.0); MEAN CORPUSCULAR HEMOGLOBIN 38.9 pg (27.0-34.0); MEAN CORPUSCULAR HGB CONC 34.8 g/dL (33.0-35.0); MEAN CORPUSCULAR VOLUME 111.8 fL (80.0-100.0); MEAN PLATELET VOLUME 6.9 fL (7.4-11.0); MONOCYTES # (AUTO) 0.6 x10^3/uL (0.3-0.8); MONOCYTES % (AUTO) 7.4 % (0.0-13.0); NEUTROPHILS # (AUTO) 6.3 x10^3/uL (2.2-4.8); NEUTROPHILS % (AUTO) 81.2 % (42.0-75.0); RED BLOOD COUNT 3.79 X10^6/uL (4.7-6.0); RED CELL DISTRIBUTION WIDTH 16.6 % (11.6-16.5); WHITE BLOOD COUNT 7.8 X10^3/uL (3.6-10.0)
[2021-11-20 22:20] LABS: ALANINE AMINOTRANSFERASE 44 Units/L (12-78); ALBUMIN 4.1 g/dL (3.4-5.0); ALKALINE PHOSPHATASE 68 Units/L (46-116); AMYLASE 74 Units/L (25-115); ASPARTATE AMINO TRANSFERASE 24 Units/L (15-37); BLOOD UREA NITROGEN 27 mg/dL (7-18); CALCIUM 8.8 mg/dL (8.5-10.1); CARBON DIOXIDE 26.9 mmol/L (21-32); CHLORIDE 105 mmol/L (98-107); COR NA(FOR HYPERGLY) 142 mmol/L (136-145); CREATININE 0.94 mg/dL (0.70-1.30); LIPASE 89 Units/L (73-393); SODIUM 141 mmol/L (136-145); eGFR NON BLACK RACES > 60 (>60)
[2021-11-20 22:21] LABS: PLATELET MORPHOLOGY COMMENT NORMAL (NORMAL)
[2021-11-20] MEDS: NS 1,000 ML IV 1,000 ML IV SCH (22:30)
[2021-11-20] MEDS: ZOFRAN INJ 4 MG VIAL IVP PRN (23:45)
[2021-11-20] MEDS: DILAUDID INJ IVP PRN (23:50)
[2021-11-21 01:33] VITALS: BMI 28.8
[2021-11-21 01:56] LABS: BILIRUBIN,URINE NEGATIVE (NEGATIVE); BLOOD/HEMOGLOBIN,URINE NEGATIVE (NEGATIVE); GLUCOSE, URINE 4+ (NEGATIVE); KETONES,URINE 2+ (NEGATIVE); LEUKOCYTE ESTERASE ,URINE NEGATIVE (NEGATIVE); NITRITES,URINE NEGATIVE (NEGATIVE); PROTEIN,URINE NEGATIVE (NEGATIVE); UROBILINOGEN,URINE NORMAL (NORMAL)
[2021-11-21 01:57] LABS: APPEARANCE,URINE CLEAR (CLEAR); COLOR,URINE YELLOW (YELLOW)
[2021-11-21] MEDS: DILAUDID INJ IVP PRN ×3 (04:28→13:41)
[2021-11-21 05:34] LABS: BASOPHILS % (AUTO) 0.4 % (0.2-1.0); EOSINOPHILS % (AUTO) 0.1 % (0.9-2.9); HEMOGLOBIN 13.5 g/dL (13.5-18.0); LYMPHOCYTES # (AUTO) 0.6 X10^3/uL (1.3-2.9); LYMPHOCYTES % (AUTO) 9.7 % (21.0-51.0); MEAN CORPUSCULAR HEMOGLOBIN 38.4 pg (27.0-34.0); MEAN CORPUSCULAR HGB CONC 34.5 g/dL (33.0-35.0); MEAN CORPUSCULAR VOLUME 111.2 fL (80.0-100.0); MEAN PLATELET VOLUME 7.4 fL (7.4-11.0); MONOCYTES # (AUTO) 0.5 x10^3/uL (0.3-0.8); MONOCYTES % (AUTO) 7.5 % (0.0-13.0); NEUTROPHILS # (AUTO) 5.4 x10^3/uL (2.2-4.8); NEUTROPHILS % (AUTO) 82.3 % (42.0-75.0); RED BLOOD COUNT 3.51 X10^6/uL (4.7-6.0); RED CELL DISTRIBUTION WIDTH 16.9 % (11.6-16.5); WHITE BLOOD COUNT 6.6 X10^3/uL (3.6-10.0)
[2021-11-21 05:44] LABS: ALANINE AMINOTRANSFERASE 36 Units/L (12-78); ALBUMIN 3.7 g/dL (3.4-5.0); ALKALINE PHOSPHATASE 56 Units/L (46-116); ASPARTATE AMINO TRANSFERASE 15 Units/L (15-37); BLOOD UREA NITROGEN 21 mg/dL (7-18); CALCIUM 8.7 mg/dL (8.5-10.1); CARBON DIOXIDE 26.8 mmol/L (21-32); CHLORIDE 106 mmol/L (98-107); COR NA(FOR HYPERGLY) 143 mmol/L (136-145); CREATININE 0.75 mg/dL (0.70-1.30); SODIUM 142 mmol/L (136-145); TOTAL PROTEIN 6.3 g/dL (6.4-8.2); eGFR NON BLACK RACES > 60 (>60)
[2021-11-21 06:32] LABS: ANISOCYTOSIS SLIGHT; PLATELET MORPHOLOGY COMMENT NORMAL (NORMAL)
[2021-11-21] MEDS ORDERED: NS 100 ML IV 100 ML ONE (08:01)
[2021-11-21] MEDS: ZOFRAN INJ 4 MG VIAL IVP PRN ×2 (08:44→13:39)
[2021-11-21] MEDS ORDERED: ELIQUIS PO SCH (09:00)
[2021-11-21] MEDS ORDERED: FLOMAX PO SCH (11:00)
[2021-11-21] MEDS: NEURONTIN CAP 400 MG PO SCH ×2 (11:04→14:15)
[2021-11-21] MEDS: NS 1,000 ML IV 1,000 ML IV SCH (11:04)
--- NOTE | 2021-11-21 13:08 | CT ---
HISTORYABDOMINAL PAIN, NAUSEA/VOMITINGSTUDYABDOMEN/PELVIS WITH [id number] images through the abdomen and pelvis were performed after the administration of contrast. CT scan was performed following ALARA (As low as Reasonably Achievable).Coronal and Sagittal reformatted images were performed.FINDINGSThe lung bases demonstrate minimal atelectasis. The liver, spleen and pancreas demonstrate no focal lesions. Patient is status post cholecystectomy. There is normal enhancement of the portal vein. No intra or extra-axial fluid collections.The stomach is decompressed. Small hiatal hernia. There is no adrenal masses. There are bilateral normal-sized kidneys without evidence of hydronephrosis with increase density in the renal pelvises, probably contrastNo retroperitoneal masses, no abnormal dilated small bowel loops, the terminal ileum is unremarkable, no appendicitisPelvis: No free fluid, the prostate is not enlarged, urinary bladder is unremarkable, there is no evidence of pelvic adenopathyBone windows no evidence of aggressive bone lesions. No acute fractures.IMPRESSIONNo acute intra-abdominal abnormalities. Densities in the renal pelvises bilaterally probably contrast.Electronically signed by: Mary Anne Dodson (Nov 21, 2021 13:07:07)
[2021-11-21 17:37] VITALS: BP 164/75
== END 2021-11-21 17:30 | disposition home or self-care (01) ==
LOC: ICU
PROVIDERS: ADMIT Internal Medicine; ATTEND Internal Medicine
DX: R11.2 Nausea with vomiting, unspecified; R10.84 Generalized abdominal pain; Z20.822 Contact with and (suspected) exposure to COVID-19

== ENCOUNTER 2022-11-11 17:06 | Observation (INO) ==
[2022-11-11] MEDS ORDERED: NovoLIN R (or HumuLIN R) SUBCUT PRN ×2 (18:24→22:04)
[2022-11-11] MEDS ORDERED: CONSULT PHARMACY - POTASSIUM & MAGNESIUM XX SCH (19:00)
[2022-11-11 19:27] LABS: BASOPHILS # (AUTO) 0.1 X10^3/uL (0.0-0.1); BASOPHILS % (AUTO) 0.7 % (0.2-1.0); EOSINOPHILS % (AUTO) 0.2 % (0.9-2.9); HEMATOCRIT 38.7 % (42.0-54.0); LYMPHOCYTES # (AUTO) 0.5 X10^3/uL (1.3-2.9); LYMPHOCYTES % (AUTO) 3.6 % (21.0-51.0); MEAN CORPUSCULAR HEMOGLOBIN 39.6 pg (27.0-34.0); MEAN CORPUSCULAR HGB CONC 33.6 g/dL (33.0-35.0); MEAN CORPUSCULAR VOLUME 117.7 fL (80.0-100.0); MEAN PLATELET VOLUME 7.2 fL (7.4-11.0); MONOCYTES # (AUTO) 0.9 x10^3/uL (0.3-0.8); MONOCYTES % (AUTO) 6.6 % (0.0-13.0); NEUTROPHILS # (AUTO) 12.4 x10^3/uL (2.2-4.8); NEUTROPHILS % (AUTO) 88.9 % (42.0-75.0); PLATELET COUNT 450 X10^3/uL (150.0-450.0); RED BLOOD COUNT 3.29 X10^6/uL (4.7-6.0); RED CELL DISTRIBUTION WIDTH 14.7 % (11.6-16.5); WHITE BLOOD COUNT 13.9 X10^3/uL (3.6-10.0)
[2022-11-11 19:29] LABS: ALANINE AMINOTRANSFERASE 29 Units/L (12-78); ALBUMIN 3.9 g/dL (3.4-5.0); ALKALINE PHOSPHATASE 73 Units/L (46-116); ASPARTATE AMINO TRANSFERASE 20 Units/L (15-37); BLOOD UREA NITROGEN 25 mg/dL (7-18); CALCIUM 8.7 mg/dL (8.5-10.1); CARBON DIOXIDE 29.8 mmol/L (21-32); CHLORIDE 103 mmol/L (98-107); COR NA(FOR HYPERGLY) 141 mmol/L (136-145); CREATINE KINASE 119 Units/L (39-308); CREATININE 1.24 mg/dL (0.70-1.30); GLUCOSE 148 mg/dL (65-99); POTASSIUM 3.7 mmol/L (3.5-5.1); SODIUM 140 mmol/L (136-145); TOTAL PROTEIN 6.8 g/dL (6.4-8.2); eGFR NON BLACK RACES > 60 (>60)
[2022-11-11 19:36] LABS: PLATELET MORPHOLOGY COMMENT NORMAL (NORMAL)
[2022-11-11 20:20] VITALS: BMI 32.5
--- NOTE | 2022-11-11 21:10 | EKG ---
Test Reason : sob Blood Pressure : */* mmHG Vent. Rate : 70 BPM Atrial Rate : 70 BPM P-R Int : 180 ms QRS Dur : 86 ms QT Int : 388 ms P-R-T Axes : 86 56 149 degrees QTc Int : 419 ms Sinus rhythm with premature supraventricular complexes Anteroseptal infarct , age undetermined Abnormal ECG No previous ECGs available Confirmed by Floyd Moore ([id number]) on 11/13/2022 12:50:51 PM Referred By: Confirmed By: Floyd Moore
[2022-11-11] MEDS: NS 1,000 ML IV 1,000 ML IV SCH (21:45)
[2022-11-11] MEDS: ZOSYN VIAL 3.375 GRAMS 3.375 G in NS 100 ML IV 100 ML IV SCH ×2 (21:45→22:30)
[2022-11-11] MEDS: NORCO 10/325 TAB PO PRN (21:47)
[2022-11-11] MEDS ORDERED: K-DUR TAB 20 MEQ PO ONE (22:00)
[2022-11-11] MEDS ORDERED: TYLENOL 325 MG TAB PO PRN (23:34)
[2022-11-12 04:56] LABS: BASOPHILS % (AUTO) 0.1 % (0.2-1.0); EOSINOPHILS # (AUTO) 0.1 x10^3/uL (0.0-0.2); EOSINOPHILS % (AUTO) 0.6 % (0.9-2.9); HEMATOCRIT 33.6 % (42.0-54.0); HEMOGLOBIN 11.8 g/dL (13.5-18.0); LYMPHOCYTES # (AUTO) 0.7 X10^3/uL (1.3-2.9); LYMPHOCYTES % (AUTO) 6.5 % (21.0-51.0); MEAN CORPUSCULAR HEMOGLOBIN 41.3 pg (27.0-34.0); MEAN CORPUSCULAR HGB CONC 35.1 g/dL (33.0-35.0); MEAN CORPUSCULAR VOLUME 117.5 fL (80.0-100.0); MEAN PLATELET VOLUME 7.4 fL (7.4-11.0); MONOCYTES # (AUTO) 0.8 x10^3/uL (0.3-0.8); MONOCYTES % (AUTO) 8.1 % (0.0-13.0); NEUTROPHILS # (AUTO) 8.8 x10^3/uL (2.2-4.8); NEUTROPHILS % (AUTO) 84.7 % (42.0-75.0); PLATELET COUNT 383 X10^3/uL (150.0-450.0); RED BLOOD COUNT 2.86 X10^6/uL (4.7-6.0); WHITE BLOOD COUNT 10.4 X10^3/uL (3.6-10.0)
[2022-11-12 04:57] LABS: ALANINE AMINOTRANSFERASE 23 Units/L (12-78); ALBUMIN 3.3 g/dL (3.4-5.0); ALKALINE PHOSPHATASE 66 Units/L (46-116); ASPARTATE AMINO TRANSFERASE 17 Units/L (15-37); BLOOD UREA NITROGEN 31 mg/dL (7-18); CALCIUM 8.5 mg/dL (8.5-10.1); CARBON DIOXIDE 28.1 mmol/L (21-32); CHLORIDE 107 mmol/L (98-107); COR CA(FOR HYPOALB) 9.1 mg/dL (8.5-10.1); COR NA(FOR HYPERGLY) 144 mmol/L (136-145); CREATININE 1.06 mg/dL (0.70-1.30); GLUCOSE 133 mg/dL (65-99); POTASSIUM 3.8 mmol/L (3.5-5.1); SODIUM 143 mmol/L (136-145); TOTAL PROTEIN 5.9 g/dL (6.4-8.2); eGFR NON BLACK RACES > 60 (>60)
--- NOTE | 2022-11-12 05:06 | RAD ---
PROCEDURE: Chest X-ray 1 View .HISTORY: Dyspnea and congestive heart failure.TECHNIQUE: AP portable done at 4:30 a.m..COMPARISON: 11/30/2017.TECHNICAL QUALITY: Satisfactory .FINDINGS:Cardiomegaly.Mediastinum and hilar regions show no masses or lymphadenopathy .Normal central vascularity .No pulmonary consolidation, masses, pleural fluid, or pneumothorax .No acute bony abnormality .IMPRESSION:Cardiomegaly with no radiographic evidence of failure.Electronically signed by: Prem Estevez (Nov 12, 2022 05:05:21)
[2022-11-12] MEDS: ZOSYN VIAL 3.375 GRAMS 3.375 G in NS 100 ML IV 100 ML IV SCH ×2 (05:27→13:54)
[2022-11-12] MEDS: NORCO 10/325 TAB PO PRN (05:35)
[2022-11-12 05:50] LABS: PLATELET MORPHOLOGY COMMENT NORMAL (NORMAL); STOMATOCYTES SLIGHT
[2022-11-12] MEDS ORDERED: CONSULT PHARMACY - POTASSIUM & MAGNESIUM XX SCH (07:00)
[2022-11-12] MEDS ORDERED: K-DUR TAB 20 MEQ PO SCH (09:00)
[2022-11-12] MEDS: NS 1,000 ML IV 1,000 ML IV SCH (09:07)
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
[2022-11-12] MEDS ORDERED: PATIENT'S HOME MEDICATION (Insulin Aspart U-100 [Novolog Flexpen U-100 Insulin] 100 unit/m subcut SCH (09:45)
[2022-11-12] MEDS ORDERED: K-DUR TAB 20 MEQ PO PRN (09:55)
[2022-11-12] MEDS ORDERED: VITAMIN C PO SCH (10:00)
[2022-11-12] MEDS ORDERED: PHARMACY CONSULT - VANCOMYCIN XX SCH (10:00)
[2022-11-12] MEDS ORDERED: ROXICODONE TAB 5 MG PO PRN (10:08)
[2022-11-12] MEDS: NEURONTIN CAP 300 MG PO SCH ×4 (10:51→20:37)
[2022-11-12] MEDS: HYDREA PO SCH ×4 (10:51→20:43)
[2022-11-12] MEDS: ELIQUIS PO SCH ×2 (10:52→20:38)
[2022-11-12] MEDS: NexIUM PO SCH (10:52)
[2022-11-12] MEDS: REGLAN TAB 5 MG PO SCH ×4 (10:52→20:38)
[2022-11-12] MEDS: COLACE CAP 100 MG PO SCH (10:52)
[2022-11-12] MEDS: ASPIRIN EC 81 MG PO SCH (10:52)
[2022-11-12] MEDS: PERCOCET TAB 5/325 MG PO PRN ×3 (10:52→20:35)
--- NOTE | 2022-11-12 10:52 | VAS ---
HISTORYBilateral lower extremity edema, cellulitisSTUDYBilateral lower extremity venous Doppler evaluation.Technique: Multiple grayscale sonographic images were obtained. Color duplex Doppler evaluation was performed.COMPARISONNoneFINDINGSBilatera lly the common femoral veins, superficial femoral veins, popliteal veins, and posterior tibial veins are patent demonstrating normal flow, compression, and distal augmentation. Compression in the right posterior tibial vein was normal. Left posterior tibial vein could not be compressed due to the patient's wound location.IMPRESSIONExam negative for deep venous thrombosis bilateral lower extremitiesElectronically signed by: MARGARET DESHPANDE (Nov 12, 2022 10:49:56)
[2022-11-12] MEDS: TORADOL 30 MG VIAL IVP SCH ×2 (10:53→17:53)
[2022-11-12] MEDS: VANCOMYCIN IV *PREMIX 1.25 G/250 ML BAG 1.25 G/250 ML PIGGYBACK IV SCH (10:53)
[2022-11-12] MEDS: LASIX IVP SCH ×2 (10:53→17:53)
[2022-11-12] MEDS: AVODART PO SCH (11:07)
[2022-11-12] MEDS: VITAMIN D3 125 mcg (5,000 UNITS) PO SCH (11:09)
[2022-11-12] MEDS ORDERED: NS 100 ML IV 100 ML ONE (13:39)
[2022-11-12] MEDS: K-DUR TAB 20 MEQ PO SCH (20:37)
[2022-11-12] MEDS ORDERED: AMBIEN PO SCH (21:00)
[2022-11-12] MEDS ORDERED: LANTUS SC SCH (21:00)
[2022-11-13 01:00] VITALS: O2SAT 95
[2022-11-13] MEDS: ZOSYN VIAL 3.375 GRAMS 3.375 G in NS 100 ML IV 100 ML IV SCH ×2 (02:13→06:34)
[2022-11-13] MEDS ORDERED: VANCOMYCIN IV *PREMIX 1.25 G/250 ML BAG 1.25 G/250 ML PIGGYBACK IV ONE (02:29)
[2022-11-13] MEDS: VANCOMYCIN IV *PREMIX 1.25 G/250 ML BAG 1.25 G/250 ML PIGGYBACK IV SCH ×2 (02:36→09:30)
[2022-11-13] MEDS: NS 1,000 ML IV 1,000 ML IV SCH (03:36)
[2022-11-13] MEDS: TORADOL 30 MG VIAL IVP SCH ×2 (03:47→09:19)
[2022-11-13 05:45] LABS: BASOPHILS % (AUTO) 0.2 % (0.2-1.0); EOSINOPHILS # (AUTO) 0.1 x10^3/uL (0.0-0.2); EOSINOPHILS % (AUTO) 0.4 % (0.9-2.9); HEMATOCRIT 34.4 % (42.0-54.0); HEMOGLOBIN 11.6 g/dL (13.5-18.0); LYMPHOCYTES # (AUTO) 0.6 X10^3/uL (1.3-2.9); LYMPHOCYTES % (AUTO) 4.5 % (21.0-51.0); MEAN CORPUSCULAR HGB CONC 33.8 g/dL (33.0-35.0); MEAN CORPUSCULAR VOLUME 118.2 fL (80.0-100.0); MEAN PLATELET VOLUME 7.5 fL (7.4-11.0); MONOCYTES # (AUTO) 0.6 x10^3/uL (0.3-0.8); MONOCYTES % (AUTO) 4.5 % (0.0-13.0); NEUTROPHILS # (AUTO) 11.3 x10^3/uL (2.2-4.8); NEUTROPHILS % (AUTO) 90.4 % (42.0-75.0); PLATELET COUNT 377 X10^3/uL (150.0-450.0); RED BLOOD COUNT 2.91 X10^6/uL (4.7-6.0); RED CELL DISTRIBUTION WIDTH 14.6 % (11.6-16.5); WHITE BLOOD COUNT 12.5 X10^3/uL (3.6-10.0)
[2022-11-13 05:57] LABS: ALANINE AMINOTRANSFERASE 32 Units/L (12-78); ALBUMIN 3.3 g/dL (3.4-5.0); ALKALINE PHOSPHATASE 62 Units/L (46-116); ASPARTATE AMINO TRANSFERASE 19 Units/L (15-37); BLOOD UREA NITROGEN 30 mg/dL (7-18); CALCIUM 8.5 mg/dL (8.5-10.1); CARBON DIOXIDE 25.9 mmol/L (21-32); CHLORIDE 105 mmol/L (98-107); COR CA(FOR HYPOALB) 9.1 mg/dL (8.5-10.1); COR NA(FOR HYPERGLY) 142 mmol/L (136-145); CREATININE 1.09 mg/dL (0.70-1.30); GLUCOSE 158 mg/dL (65-99); POTASSIUM 4.3 mmol/L (3.5-5.1); SODIUM 141 mmol/L (136-145); eGFR NON BLACK RACES > 60 (>60)
[2022-11-13 07:30] LABS: BAND NEUTROPHILS % 0 % (0-10)
[2022-11-13 07:31] LABS: BASOPHILS % (MANUAL) 0 % (0-1); PLATELET MORPHOLOGY COMMENT NORMAL (NORMAL); STOMATOCYTES 1+
[2022-11-13 08:39] VITALS: BP 154/72; PULSE 57; RESP 18; TEMP 98
--- NOTE | 2022-11-13 09:16 | CT ---
HISTORYR/O OSTEOMYELITISSTUDYLOWER EXT W/O CONCOMPARISONNoneTECHNIQUECT images of the left lower leg were obtained from the proximal tibial diaphysis through the ankle, without contrast. Dose reduction techniques including Automated Exposure Control (AEC) and adjustment of mA and kV were utilized.FINDINGSThere is healed distal fibular fracture status post ORIF with a displayed-screw construct, without evidence for hardware failure or loosening. Two fixation anchors are present within the medial malleolus. There is [id number] tibiotalar degenerative disease with subcortical cystic change. There is an area subcortical lucency of the medial talar dome without cortical collapse or fragmentation. No acute cortical disruption or osteolysis identified. There is mild calcaneal enthesopathy at the plantar fascia and Achilles attachments. Scattered vascular calcification noted. There is subcutaneous edema of the visualized foreleg and ankle. No discrete collection or soft tissue gas identified. The visualized muscles are unremarkable for technique.IMPRESSIONDiffuse subcutaneous edema of the ankle and visualized foreleg, without collection or soft tissue gas.No evidence for osteomyelitis.Healed distal fibular fracture status post ORIF. Anchors within the medial malleolus. No evidence for hardware failure or loosening.Tibiotalar degenerative disease. Subcortical lucency of the medial talar dome, compatible with degenerative disease or an osteochondral lesion, without cortical collapse or fragmentation.Electronically signed by: PEDRO TURNER (Nov 13, 2022 09:15:45)
[2022-11-13] MEDS: ASPIRIN EC 81 MG PO SCH (09:17)
[2022-11-13] MEDS: REGLAN TAB 5 MG PO SCH (09:17)
[2022-11-13] MEDS: ELIQUIS PO SCH (09:17)
[2022-11-13] MEDS: PERCOCET TAB 5/325 MG PO PRN (09:18)
[2022-11-13] MEDS: NexIUM PO SCH (09:18)
[2022-11-13] MEDS: HYDREA PO SCH (09:18)
[2022-11-13] MEDS: COLACE CAP 100 MG PO SCH (09:18)
[2022-11-13] MEDS: NEURONTIN CAP 300 MG PO SCH (09:18)
[2022-11-13] MEDS: VITAMIN D3 125 mcg (5,000 UNITS) PO SCH (09:18)
[2022-11-13] MEDS: K-DUR TAB 20 MEQ PO SCH (09:18)
[2022-11-13] MEDS: AVODART PO SCH (09:19)
[2022-11-13] MEDS: LASIX IVP SCH (09:19)
== END 2022-11-13 11:50 | disposition home or self-care (01) ==
LOC: MED/SURG
PROVIDERS: ADMIT Internal Medicine; ATTEND Internal Medicine
DX: S81.812A Laceration without foreign body, left lower leg, initial encounter; R26.9 Unspecified abnormalities of gait and mobility; G89.29 Other chronic pain; I48.91 Unspecified atrial fibrillation; I50.9 Heart failure, unspecified; Y92.9 Unspecified place or not applicable; E27.40 Unspecified adrenocortical insufficiency; M79.669 Pain in unspecified lower leg; W55.89XA Other contact with other mammals, initial encounter; I11.0 Hypertensive heart disease with heart failure; E11.9 Type 2 diabetes mellitus without complications; I25.810 Atherosclerosis of coronary artery bypass graft(s) without angina pectoris; L03.116 Cellulitis of left lower limb